=== PATIENT | male | born 1980 | race Caucasian/White ===

== ENCOUNTER 2020-04-30 08:21 | Emergency (ER) | payer OTHER ==
[~2020-04-30] VITALS: Ht 175.3 cm; Wt 63.5 kg
== END 2020-04-30 14:50 | disposition home or self-care (01) ==
LOC: ER 08:21
DX: G89.11 Acute pain due to trauma (principal); M25.561 Pain in right knee; I16.1 Hypertensive emergency; I10 Essential (primary) hypertension

== ENCOUNTER 2020-04-30 18:53 | Emergency (ER) | payer OTHER ==
[~2020-04-30] VITALS: Ht 175.3 cm; Wt 63.5 kg
== END 2020-05-03 11:29 | disposition home or self-care (01) ==
LOC: ER 18:53
DX: G89.21 Chronic pain due to trauma (principal); M79.604 Pain in right leg; M25.561 Pain in right knee; I87.2 Venous insufficiency (chronic) (peripheral); Z59.0 Homelessness; Z03.818 Encounter for observation for suspected exposure to other biological agents ruled out

== ENCOUNTER 2020-05-26 23:46 | Emergency (ER) | payer OTHER ==
[~2020-05-26] VITALS: Ht 175.3 cm; Wt 65.8 kg
[2020-05-27] MEDS ORDERED: KETO10TA2 PO (08:26)
== END 2020-05-27 14:09 | disposition home or self-care (01) ==
LOC: ER 23:46
DX: M25.551 Pain in right hip (principal)

== ENCOUNTER 2022-08-02 19:28 | Inpatient (IN) | payer OTHER ==
[~2022-08-02] VITALS: Ht 175.3 cm; Wt 63.5 kg
[~2022-08-02 19:28] MED LIST: KETO10TA2 PO
--- NOTE | 2022-08-02 19:41 | NUR ---
PACIENTE ALERTA Y ORIENTADO POR 3 LLEGA EN AMBULANCIA SE LE YASMANY SIGNOS VITALES Y SE STALIN EN AREA DE PASILLO.
--- NOTE | 2022-08-02 20:03 | NUR ---
SE ORIENTA PTE SOBRE TX A SEGUIR, EL CUAL REFIERE ENTENDER. SE CALOECTAN MUESTRAS Y SE CANALIZA PTE UTILIZANDO MEDIDAS ASEPTICAS.SE ADM MEDICAMENTOS EMILIA ORDEN MEDICA BAJO MEDIDAS ASEPTICAS.
--- NOTE | 2022-08-02 22:02 | NUR ---
PACIENTE ALERTA Y ORIENTADO X 3 SE [place] PARA K8. SE LE ORIENTA SOBRE TRATAMEINTO A SERGUIR EL MISMO REFIERE ENTENDER SE STALIN EN CAMA CON BARRANDAS ELEVADAS.
--- NOTE | 2022-08-02 22:33 | NUR ---
PTE ALERTA,ESTABLE Y ORIENTADO MYRNA REHUSA EL CABRAL
== END 2022-08-04 15:38 | disposition left against medical advice (07) | DRG 683 ==
LOC: ER 19:28 → SURH 22:32
PROVIDERS: ADMIT Internal Medicine; ATTEND Internal Medicine
PROC: 06HY33Z Insertion of Infusion Device into Lower Vein, Percutaneous Approach (ICD-10-PCS; principal; 2022-08-03)
PROC: 4A12X4Z Monitoring of Cardiac Electrical Activity, External Approach (ICD-10-PCS; 2022-08-03)
DX: N17.9 Acute kidney failure, unspecified (principal); F19.20 Other psychoactive substance dependence, uncomplicated; R65.10 Systemic inflammatory response syndrome (SIRS) of non-infectious origin without acute organ dysfunction